=== PATIENT | male | born 1965 | race African-American/Black ===

== ENCOUNTER 2020-01-11 12:11 | Emergency (ER) | payer MEDICAID ==
[~2020-01-11] VITALS: Ht 182.9 cm; Wt 90.0 kg
[2020-01-11] MEDS ORDERED: IBUPROFEN 600MG TABLET PO ONE (15:30)
[2020-01-11 16:00] VITALS: BP 138/85
== END 2020-01-11 16:49 | disposition home or self-care (01) ==
LOC: ER 12:11
DX: M54.6 Pain in thoracic spine (principal)
CPT/HCPCS: 71045; 93005; 99283

== ENCOUNTER 2020-10-04 02:45 | Emergency (ER) | payer SELFPAY ==
[~2020-10-04] VITALS: Ht 182.9 cm; Wt 90.0 kg
[2020-10-04 05:30] VITALS: BP 117/73
== END 2020-10-04 06:23 ==
LOC: ER 02:45
DX: F10.229 Alcohol dependence with intoxication, unspecified (principal); I10 Essential (primary) hypertension; Y90.9 Presence of alcohol in blood, level not specified
CPT/HCPCS: 93005; 99283